=== PATIENT | female | born 1955 | race Caucasian/White ===

== ENCOUNTER → 2024-08-24 08:37 | Outpatient (REF) | payer MEDICARE, OTHER, SELFPAY | LOC: RAD 08:37 | PROVIDERS: ATTENDING PHYSICIAN Surgery; FAMILY PHYSICIAN Family Medicine | DX: K43.2 Incisional hernia without obstruction or gangrene (principal) | CPT/HCPCS: 74177; Q9967 ==

== ENCOUNTER → 2024-09-04 07:37 | Outpatient (REF) | payer MEDICARE, OTHER, SELFPAY | LOC: SDSPAT 07:37 | PROVIDERS: ATTENDING PHYSICIAN Surgery; FAMILY PHYSICIAN Family Medicine | DX: K43.2 Incisional hernia without obstruction or gangrene (principal) | CPT/HCPCS: 36415; 93005 ==

== ENCOUNTER 2024-09-25 15:00 | Inpatient (IN) | payer MEDICARE, OTHER, SELFPAY ==
--- NOTE | 2024-09-04 14:00 | PTCARENOTE ---
Patients 09/04 ECG abnormal- reviewed by Dr. Thibodeaux- no additional interventions required
[2024-09-04 14:18] VITALS: BMI 28.3
[2024-09-25] VITALS (9 sets, daily range): BP systolic 104–146; BP diastolic 65–86; BMI 28.3
[2024-09-25] MEDS: TYLENOL 1000 MG PO (12:24)
[2024-09-25] MEDS: NORMOSOL-R/PLASMALYTE-A 1000 IV (12:34)
[2024-09-25] MEDS: HEPARIN 5000 UNITS SC (12:34)
--- NOTE | 2024-09-25 16:54 | W.IMMPOSTOP ---
Surgical Immed Post Op Note
-
Primary Surgeon: Teresa
Assisting: Solis JOEL
Pre-op Diagnosis: Recurrent ventral incisional hernia
Post-op Diagnosis: Recurrent incarcerated ventral incisional hernia
Procedure Performed: Robot assisted laparoscopic repair of recurrent incarcerated ventral incisional hernia (rTAPP)
Anesthesia Type: GETA + TAP block
Specimen / Cultures: None
Estimated Blood Loss: 5cc
Complications: None immediate
Operative Findings: 5cm x 7cm defect, 2cm fascial bridge with additional 2cm defect inferior; 15 x 15cm bard soft mesh; [total hernia size 11cm]
--- NOTE | 2024-09-25 18:43 | PTCARENOTE ---
Pt arrived to [facility] from PACU in a bed. 4 lap sites and 1 poke site [employer]INE [employer]CTOR with glue. Abdominal binder in place. Pt DTV. Knee high SCDs/teds in place. On 2L at 96%. Report given to nightshift RN. Care ongoing.
[2024-09-25] MEDS: LOVENOX 40 MG SC (20:31)
[2024-09-25] MEDS: ZESTRIL 10 MG PO (20:31)
--- NOTE | 2024-09-26 02:35 | PTCARENOTE ---
Addendum entered by Kamini Hodges RN 09/26/24 02:42:
pt abdominal binder remains in place
Original Note:
pt is aaox3, reports abdomen feeling tender, bloated- but denies pain. 4 lap sites approximate and surgical glue intact. puncture site - serosanguineous drainage oozing- gaze and tape applied. pt w/ ice on belly. pt tolerated dinner. no nausea or
pain. report post op care and instructions.
pt later voided and walked the halls.
[2024-09-26 03:30] VITALS: BP 139/82
[2024-09-26 07:30] VITALS: BP 145/78
--- NOTE | 2024-09-26 09:56 | CM ---
Cm reviewed medical records. Patient does not have a history of VN, SNF or DME. Patient is active with her PCP. Patient uses [facility] for medication services.
PLAN: Home with family. no needs noted.
--- NOTE | 2024-09-26 09:58 | W.PN.GS2 ---
Today's Communication / Plan
-
DC
Assessment / Plan
-
69F POD1 s/p rTAPP recurrent VIHR
Doing well post-op, meets criteria for DC
Advised to wear binder when OOB for 2 weeks
Advised to begin daily miralax tonight
Subjective Data
-
Date of Service: September 26, 2024
AFVSS, case reg dinner and breakfast, no n/v, passing flatus, pain controlled, ambulating, voiding
Objective Data
-
Intake and Output
09/25/24 09/26/24 09/27/24
06:59 06:59 06:59
Intake Total 1260 / 1260 240 / 240
Output Total 250 / 250
Balance 1010 / 1010 240 / 240
Intake:
Oral fluids 960 / 960 240 / 240
IV fluids (Total) 300 / 300
Output:
Urine, Voided 250 / 250
Other:
Number of approximated MODERATE 1 2
amounts of urine
Number of approximated LARGE 1
amounts of urine
Vital Signs
Temp Pulse Resp BP Pulse Ox
98.0 F 80 15 145/78 92
09/26/24 07:30 09/26/24 07:30 09/26/24 07:30 09/26/24 07:30 09/26/24 07:30
Physical Exam
-
Gen: NAd
Abd: softly distended, approp ttp, incisions cdi, needle puncture to mid abdomen with scant ss drainage
Patient has a de los santos catheter: No
Patient has a central line: No
--- NOTE | 2024-09-26 10:03 | W.DS.TRANS ---
DC Summary - Head Bookkeeper
-
Discharge Instructions:
Sleep Apnea Risk Low
Discharge Diagnosis/Procedures Recurrent ventral incisional hernia
Diet No restrictions
Activity No strenuous activity
Bathing Restrictions OK to Shower
Wound Care Allow skin glue to flake off on its own. Wear
abdominal binder when out of bed for 2 weeks.
Use a bandaid over the needle puncture site near
your bellybutton as needed for drainage.
Instructions: Abdominal wall hernia repair - Discharge instructions
Stand-Alone Forms:
Changes to Home Medications: No
Discharge Medications:
DC Medications w/original date entered in [email or web address]
epinephrine 0.3 mg/0.3 mL injection, auto-injector (EpiPen) 0.3 mg IM PRN PRN Allergic Reaction 09/17/22
lisinopril 10 mg tablet 10 mg PO HS 09/11/24
trimethoprim 100 mg tablet 100 mg PO HS 09/11/24
tramadol 50 mg tablet 50 - 100 mg (1 - 2 x 50 mg) PO Q6H PRN Pain #40 tabs 09/26/24
Home Medication Changes
Pending Results: No
[2024-09-26 11:40] VITALS: BP 135/67
--- NOTE | 2024-10-01 13:34 | OR.RPT ---
Operative Report
Operative Report
Primary Surgeon: Teresa
Assisting: Solis JOEL
Pre-op Diagnosis: Recurrent ventral incisional hernia
Post-op Diagnosis: Recurrent incarcerated ventral incisional hernia
Procedure Performed: Robot assisted laparoscopic repair of recurrent incarcerated ventral incisional hernia (rTAPP)
Anesthesia Type: GETA + TAP block
Specimen / Cultures: None
Estimated Blood Loss: 5cc
Complications: None immediate
Operative Findings: 5cm x 7cm defect, 2cm fascial bridge with additional 2cm defect inferior; 15 x 15cm bard soft mesh
DOS: 09/25/24
Indications:� This 69F developed a recurrent incarcerated symptomatic ventral incisional hernia. Robot assisted laparoscopic repair was planned.
Description of procedure:� The patient was taken to the operating room and positioned into supine position. The patient�s abdomen was prepped and draped in standard sterile fashion. A time-out was completed verifying correct patient, procedure,
site, positioning, and implants and special equipment prior to beginning this procedure.� A stab incision was made in the left upper quadrant, a Veress needle was inserted and proper position was confirmed by aspiration and saline drop test.
Following this, pneumoperitoneum was created with insufflation of carbon dioxide to 12 mmHg. Then a 8mm robotic trocar was inserted at the left of anterior axillary line. The laparoscope was inserted and no injuries were identified in the area.
Under direct visualization, two 8mm trocars were placed a hand's breadth inferior to the initial trocar and a hand's breadth inferior to the second trocar in succession.
Attention was turned to the defect. Omental adhesions to the abdominal all were taken down. Small bowel adhesions to the abdominal wall were taken down with cold dylan. Portions of the old mesh were the edges were exposed were trimmed and removed
from the abdomen. The peritoneum was incised several cm superior to the defect and a peritoneal flap was developed in transverse and caudad directions using blunt and sharp dissection and judicious electrocautery. The defects measured as above.
The pressure was lowered to 8mmHg and the defects were closed with 0 PDS stratafix suture. The pressure was returned to 12mmHg. Mesh was passed into the abdomen and centered on the defect and then placed against the underside of the abdominal wall
and secured in place with 2-0 vicryl sutures at all four corners as well as under the defect. The flap was closed over the mesh and secured with 2-0 monocryl stratafix suture. A few small rents in the flap were closed with 2-0 vicryl suture and 2-0
monocryl stratafix suture. A transversus abdominis plane block was then performed under laparoscopic vision with marcaine/decadron.
After ensuring adequate hemostasis, the trocars were removed and the pneumoperitoneum allowed to escape. The trocar incisions were closed at the skin level using 4-0 monocryl and topical skin adhesive. All counts were correct. The patient tolerated
the procedure well and was taken to the postanesthesia care unit in stable condition.
--- NOTE | 2024-10-05 16:01 | W.PN.UPDATE ---
Update Note
Progress Note Update
Change level of care to inpatient, this order intended to be placed 09/25/24. Delayed entry
== END 2024-09-26 12:40 | disposition home or self-care (01) | DRG 355 ==
LOC: 2 SOUTH 15:00
PROVIDERS: ADMITTING PHYSICIAN Surgery; FAMILY PHYSICIAN Family Medicine
PROC: 0WUF4JZ Supplement Abdominal Wall with Synthetic Substitute, Percutaneous Endoscopic Approach (ICD-10-PCS; 2024-09-25)
PROC: 8E0W4CZ Robotic Assisted Procedure of Trunk Region, Percutaneous Endoscopic Approach (ICD-10-PCS; 2024-09-25)
DX: K43.0 Incisional hernia with obstruction, without gangrene (principal)
CPT/HCPCS: 49616; C1781